=== PATIENT | male | born 2000 ===

== ENCOUNTER 2022-01-29 02:14 | Outpatient (CLI) | payer MEDICAID, SELFPAY | END 2022-01-29 02:15 | disposition home or self-care (01) | LOC: AMB 03-11 22:40 | PROVIDERS: Visit Provider Family Medicine | DX: T14.90XA Injury, unspecified, initial encounter (principal); V48.0XXA Car driver injured in noncollision transport accident in nontraffic accident, initial encounter; Y92.410 Unspecified street and highway as the place of occurrence of the external cause | CPT/HCPCS: A0425; A0427 ==